=== PATIENT | female | born 2005 ===

== ENCOUNTER 2025-05-15 09:01 | Emergency (ER) | payer OTHER ==
[2025-05-15 09:14] VITALS: BMI 21.8
[2025-05-15] MEDS ORDERED: ACETAMINOPHEN 325 MG TABLET (FP) ONE (10:32)
[2025-05-15] MEDS: ACETAMINOPHEN 500 MG TABLET (FP) PO ONE (10:34)
[2025-05-15 10:38] LABS: EPI CELLS 13 /uL (0-25.1); HYALINE CASTS 0 /uL (0-3.1); URINE APPEARANCE CLEAR; URINE BACTERIA 91 /uL (0-1359); URINE BILIRUBIN NEGATIVE (NEGATIVE); URINE COLOR YELLOW; URINE GLUCOSE (UA) NEGATIVE (NEGATIVE); URINE KETONE NEGATIVE (NEGATIVE); URINE LEUK ESTERASE 2+ (NEGATIVE); URINE NITRITE NEGATIVE (NEGATIVE); URINE PROTEIN NEGATIVE (NEGATIVE); URINE RBC 117 /uL (0-23.9); URINE UROBILINOGEN 1.0 mg/dL (0.2-1.0); URINE WBC 7 /uL (0-25.8)
[2025-05-15] MEDS ORDERED: DOXYCYCLINE HYCLATE 100 MG TABLET PO ONE (11:19)
[2025-05-15] MEDS: DOXYCYCLINE HYCLATE 100 MG CAPSULE PO ONE (11:22)
[2025-05-15 12:32] VITALS: BP 100/63; PULSE 93; RESP 16; TEMP 99.3
[2025-05-15 13:51] LABS: HIV INTERPRETATION NEGATIVE (NEGATIVE)
[2025-05-15 13:54] LABS: HCV DIAGNOSTIC IN-HOUSE W/RFLX NON-REACTIVE (NONREACTIVE)
== END 2025-05-15 13:28 | disposition home or self-care (01) ==
LOC: JER 09:01
DX: N72 Inflammatory disease of cervix uteri (principal); R07.89 Other chest pain; R42 Dizziness and giddiness; R50.9 Fever, unspecified; R11.0 Nausea
CPT/HCPCS: 36415; 71046-TC-FY; 81003; 84703; 86780; 86803; 87086; 87389; 87491; 87591; 87661; 93005; 93010; 99284-25